=== PATIENT | female | born 1990 | race Caucasian/White ===

== ENCOUNTER → 2019-02-02 | Outpatient (CLI) | payer OTHER ==
[~2019-02-02] VITALS: Ht 170.2 cm; Wt 84.4 kg
[~2019-02-02] MED LIST: BIOTIN800 MCG PO; CALCITRATE 3151 TAB PO; PRENATAL MVI PO
[2019-02-02 15:09] VITALS: BP 104/60; PULSE 60
== END ==
LOC: LIGHT 01-29 14:12
DX: Z01.818 Encounter for other preprocedural examination (principal); E66.9 Obesity, unspecified; Z68.29 Body mass index [BMI] 29.0-29.9, adult
CPT/HCPCS: G0463